=== PATIENT | male | born 1955 | race Caucasian/White ===

== ENCOUNTER → 2019-08-14 | Outpatient (CLI) | payer OTHER ==
[~2019-08-14] MED LIST: APAP500 PO; ASPIRIN325 PO; ATORVASTATIN CA40 MG PO; CO Q-10100 MG PO; CRESTOR40 MG PO; IBUPROFEN 200200 M1 PO; LIPITOR40 MG PO; MULTIVITAMINS1 EAC7 PO; PHENERGAN 25 MG25 M1 PO
== END ==
LOC: CAT 09:42
DX: Z13.6 Encounter for screening for cardiovascular disorders (principal); E78.00 Pure hypercholesterolemia, unspecified; I25.10 Atherosclerotic heart disease of native coronary artery without angina pectoris

== ENCOUNTER → 2019-08-17 | Outpatient (CLI) | payer OTHER ==
--- NOTE | 2019-08-24 15:36 | 24HR ---
[facility] [place] [address] 24 HR ELECTROCARDIOGRAM REPORT Name: KARTHIK TYLER Room #: REG CL [id number] Admission: 08/17/19 Attend Phys: Brendan Linton Discharge: Date of : 59 Report #: [id number] THIS REPORT FOR: //name// [facility] Test Date: 2019-08-17 Test Time: 11:42:00 Pat Name: KARTHIK TYLER Department: Room: Gender: Shagger: : 1955 Requested By: Brendan Braga Order Number: [id number] Reading MD: Joesph Worthy Interpretive Statements The average heart rate was 79 bpm. There were no episodes of atrial fibrillation or SVT. There were rare PVCs and PACs. There were no symptomatic episodes during the monitoring. There was no clinically significant bradycardia noted. Electronically Signed On 08-24-2019 15:36:24 CDT by Joesph Worthy [email or web address] <ELECTRONICALLY SIGNED> By: Joesph Worthy MD 08/24/19 1536 1142 1142 MD VEE Griffin
== END ==
LOC: CV 10:24
DX: I65.23 Occlusion and stenosis of bilateral carotid arteries (principal); I63.9 Cerebral infarction, unspecified; R42 Dizziness and giddiness

== ENCOUNTER → 2020-10-24 | Outpatient (CLI) | payer OTHER | LOC: RAD 11:04 | PROVIDERS: ATTEND Neuromusculoskeletal Medicine & OMM | DX: M16.11 Unilateral primary osteoarthritis, right hip (principal); M25.851 Other specified joint disorders, right hip ==

== ENCOUNTER → 2021-12-22 | Outpatient (CLI) | payer OTHER | LOC: RAD 11:12 | PROVIDERS: ATTEND Nurse Practitioner | DX: M16.11 Unilateral primary osteoarthritis, right hip (principal) ==